=== PATIENT | female | born 1950 | race Caucasian/White ===

== ENCOUNTER 2017-05-12 10:09 | Day surgery (SDC) | payer OTHER ==
[2017-05-10 17:17] VITALS: BMI 28.9
--- NOTE | 2017-05-12 09:07 | HP ---
History & Physical Update - History History: No Change - Physical Physical: No Change - Assessment Assessment: No Change - Plan Plan: No Change
[~2017-05-12 10:09] MED LIST: ACETAMINOPHEN 325 MG TABLET (FP) PO PRN
[2017-05-12] MEDS ORDERED: CYCLOPENTOLATE HCL 1% OPHTH SOLN 2 ML BOTTLE ONE (10:24)
[2017-05-12] MEDS ORDERED: PHENYLEPHRINE 2.5% OPHTH SOLN 15 ML BOTTLE ONE (10:24)
[2017-05-12] MEDS ORDERED: CIPROFLOXACIN 0.3% EYE DROPS 5 ML BOTTLE ONE (10:24)
[2017-05-12] MEDS ORDERED: FLURBIPROFEN 0.03% OPHTH SOLN 2.5 ML BOTTLE ONE (10:24)
[2017-05-12] MEDS ORDERED: TROPICAMIDE 0.5% OPHTHALMIC SOLN 15 ML BOTTLE ONE (10:24)
[2017-05-12] MEDS ORDERED: LACTATED RINGERS SOLUTION 1,000 ML IV SCH (10:30)
[2017-05-12] MEDS: CIPROFLOXACIN HCL 0.3% OPHTH 2.5ML BOTTLE OP SCH ×3 (10:41→10:51)
[2017-05-12] MEDS: PHENYLEPHRINE 2.5% OPHTH SOLN 15 ML BOTTLE OP SCH ×3 (10:41→10:51)
[2017-05-12] MEDS: FLURBIPROFEN 0.03% OPHTH SOLN 2.5 ML BOTTLE OP SCH ×3 (10:41→10:51)
[2017-05-12] MEDS: TROPICAMIDE 1% OPHTH SOLN 15 ML BOTTLE OP SCH ×3 (10:41→10:51)
[2017-05-12] MEDS: CYCLOPENTOLATE HCL 1% OPHTH SOLN 2 ML BOTTLE OP SCH ×3 (10:41→10:51)
[2017-05-12] MEDS ORDERED: MIDAZOLAM HCL 2 MG/2 ML SINGLE DOSE VIAL ONE (11:59)
[2017-05-12] MEDS ORDERED: LIDOCAINE HCL/PF 2% SDV 5ML VIAL INF ONE (12:09)
[2017-05-12] MEDS ORDERED: BUPIVACAINE HCL/PF 0.75% 10 ML VIAL RB ONE (12:09)
[2017-05-12] MEDS ORDERED: POVIDONE-IODINE 5% OPHTHALMIC PREP 30 ML SOLUTION OS ONE (12:11)
[2017-05-12] MEDS ORDERED: CHONDROITIN SU A/HYALUR SOD 1 KIT IO ONE (12:19)
[2017-05-12] MEDS ORDERED: BSS (NA/CA/MG/K) BALANCED SALT SOLUTION OPHTH SOLN 15 ML BOTTLE OS ONE (12:19)
[2017-05-12] MEDS ORDERED: LIDOCAINE HCL 1% PRESERVATIVE FREE - 30ML VIAL IO ONE (12:19)
[2017-05-12] MEDS ORDERED: EPINEPHrine/PF 1 MG/1 ML (1:1,000) AMPULE IO ONE (12:26)
[2017-05-12 12:58] VITALS: TEMP 98.1
[2017-05-12 13:56] VITALS: PULSE 89
[2017-05-12 13:58] VITALS: BP 138/74
--- NOTE | 2017-05-12 20:19 | SPEC ---
DATE OF OPERATION: 05/12/2017 OPERATION: Phacoemulsification with posterior chamber intraocular lens implantation, left eye, lens used [id number], 22.5 Diopter, Serial No. [id number]. PREOPERATIVE DIAGNOSIS: Cataract, left eye. POSTOPERATIVE DIAGNOSIS: Cataract, left eye. SURGEON: Vick Wade M.D. ANESTHESIA: Peribulbar/Modified Van Lint/MAC. COMPLICATIONS: None. PROCEDURE: The patient was brought to the operating room and correctly identified along with the operative site and a correct intraocular lens ramirez. The patient was then given a peribulbar block under sedation with 5 mL of a 1:1 mixture of 2% Lidocaine and 0.5% Bupivacaine. Two to 3 mL of the same mixture was given as a modified Van Lint block. The eye was then prepped and draped in the usual sterile fashion including 5% Betadine solution in the conjunctival sac and an eyelid drape. An eyelid speculum was then placed into the eye. A paracentesis port was created. Viscoelastic was injected to inflate the anterior chamber. A temporal clear corneal wound was created. A continuous circular capsulorrhexis was performed. The nucleus was then hydro-dissected and removed phacoemulsification via the rcoqey-ehs-ultbjop approach. The remaining cortical material was irrigated and aspirated from the eye. Viscoelastic was injected to inflate the capsular bag. The lens was injected into the capsular bag. Viscoelastic was then irrigated and aspirated from the eye. The intraocular lens was noted to be well centered and covered by the anterior capsular border. All wounds were found to be watertight. Topical Vancomycin was given. The eye patch and shield were placed. The patient was discharged from the operating room in stable condition. Mattie [id number]
== END 2017-05-12 13:40 | disposition home or self-care (01) ==
LOC: JASU-SURG 10:09
PROVIDERS: ATTEND Ophthalmology
PROC: 08RK3JZ Replacement of Left Lens with Synthetic Substitute, Percutaneous Approach (ICD-10-PCS; principal; 2017-05-12 12:00)
DX: H26.9 Unspecified cataract (principal)
CPT/HCPCS: 82962

== ENCOUNTER 2017-06-08 00:38 | Emergency (ER) | payer OTHER ==
--- NOTE | 2017-06-08 01:02 | PDOC ---
History of Present Illness - General Stated Complaint: BLOOD SUGAR PROBLEM Time Seen by Provider: 06/08/17 01:02 - History of Present Illness Initial Comments: 67 year old female with history of IDDM and developmental issue (likely autism but never formally diagnosed) presenting with repeat asymptomatic hyperglycemia (readings of 500s for two days in a row). States she is taking her medication as directed and has been eating fairly well. Denies nausea, vomiting, fevers, chills, abdominal pain, urinary symptoms, sob, chest pain, or other sick symptoms. 06/08/17 02:53 Past History - Past Medical History Allergies/Adverse Reactions: Allergies Allergy/AdvReac Type Severity Reaction Status Date / Time No Known Allergies Allergy Verified 06/08/17 01:21 Home Medications: Ambulatory Orders Ezetimibe [Zetia -] 10 mg PO DAILY #0 tablet 05/20/12 Valsartan [Diovan] 160 mg PO DAILY #0 tablet 05/20/12 Insulin Lispro [Humalog] 100 unit SQ ASDIR 11/11/13 Insulin (Levemir) [Levemir Flexpen -] 0 units SQ ASDIR #0 11/13/13 Duloxetine HCl [Cymbalta] 20 mg PO HS 05/11/17 Glipizide 10 mg PO BID 05/11/17 Metformin HCl 500 mg PO BID 05/11/17 Risperidone 1 mg PO HS 05/11/17 Cephalexin [Keflex] 500 mg PO BID 5 Days #10 capsule 06/08/17 Anemia: No Asthma: No Cancer: No Cardiac Disorders: No CVA: No COPD: No CHF: No Dementia: No Diabetes: Yes GI Disorders: No Disorders: No HTN: Yes Hypercholesterolemia: Yes Liver Disease: No Seizures: No Thyroid Disease: No - Suicide/Smoking/Psychosocial Hx Smoking Status: No Smoking History: Never smoked Have you smoked in the past 12 months: No Number of Cigarettes Smoked Daily: 0 Hx Alcohol Use: No Drug/Substance Use Hx: No Substance Use Type: None Hx Substance Use Treatment: No Review of Systems - Review of Systems Constitutional: No: Chills, Diaphoresis, Fever, Loss of Appetite HEENTM: No: Eye Pain, Blurred Vision Respiratory: No: Cough, Orthopnea, Shortness of Breath Cardiac (ROS): No: Chest Pain, Irregular Heart Rate, Chest Tightness ABD/GI: No: Constipated, Diarrhea, Nausea, Poor Appetite, Vomiting : No: Burning, Dysuria, Discharge, Frequency Musculoskeletal: No: Back Pain, Joint Pain, Joint Swelling Integumentary: No: Bruising, Change in Color, Pruritus Neurological: No: Headache, Numbness, Paresthesia *Physical Exam - Physical Exam General Appearance: Yes: Nourished, Appropriately Dressed. No: Apparent Distress HEENT: positive: EOMI, ESTEVAN, Normal ENT Inspection, Normal Voice Neck: positive: Trachea midline, Normal Thyroid, Supple. negative: Tender, Rigid Respiratory/Chest: positive: Lungs Clear, Normal Breath Sounds. negative: Chest Tender, Respiratory Distress, Accessory Muscle Use Cardiovascular: positive: Regular Rhythm, Regular Rate Gastrointestinal/Abdominal: positive: Normal Bowel Sounds, Flat, Soft. negative : Tender Musculoskeletal: positive: Normal Inspection. negative: CVA Tenderness Extremity: positive: Normal Capillary Refill, Normal Inspection, Normal Range of Motion. negative: Tender Integumentary: positive: Normal Color, Dry, Warm Neurologic: positive: Fully Oriented, Alert, Normal Response, Motor Strength 5/ 5. negative: Normal Mood/Affect (slightly flact affect) ED Treatment Course - LABORATORY CBC & Chemistry Diagram: 06/08/17 02:00 06/08/17 02:00 Medical Decision Making - Medical Decision Making 67 year old female with IDDM presenting with elevated sugars at home to 500s and 400 on our labs. Sugars down to 300s after 1L PO hydration and 5 units sub cutaneous insulin. UA demonstrating UTI without ketones. Patient remained asymptomatic during her visit. Will DC with PCP follow up and keflex to ensure better blood sugar control. 06/08/17 04:07 *DC/Admit/Observation/Transfer Diagnosis at time of Disposition: Hyperglycemia, UTI (lower urinary tract infection) - Discharge Dispostion Disposition: HOME Condition at time of disposition: Improved Admit: No - Prescriptions Prescriptions: Cephalexin [Keflex] 500 mg PO BID 5 Days #10 capsule - Referrals Referrals: Gaston Limon MD [Primary Care Provider] - - Patient Instructions Printed Discharge Instructions: DI for Hyperglycemia -- Adult Additional Instructions: Please follow up with your primary care physician for your blood sugar control. Please take the keflex antibiotic twice a day for 5 days. Please return to the ED if you have new or worsening symptoms. - Post Discharge Activity
[2017-06-08 01:21] VITALS: BP 129/89; PULSE 109; TEMP 97.7; BMI 30.2
[2017-06-08 02:19] LABS: EOS % 4.1 % (0-4.5); HEMATOCRIT 33.9 % (32.4-45.2); HEMOGLOBIN 11.7 GM/dL (10.7-15.3); MCH 29.9 pg (25.7-33.7); MCHC 34.4 g/dl (32.0-36.0); MEAN PLT VOLUME 9.2 fl (7.5-11.1); MONO % 8.5 % (3.8-10.2); NEUT % 47.4 % (42.8-82.8); PLATELET COUNT 241 K/MM3 (134-434); RDW 13.1 % (11.6-15.6); WHITE BLOOD COUNT 8.1 K/mm3 (4.0-10.0)
--- NOTE | 2017-06-08 02:22 | PDOC ---
Attending Attestation - Resident Resident Name: Myriam Munguia - ED Attending Attestation I have performed the following: I have examined & evaluated the patient, The case was reviewed & discussed with the resident, I agree w/resident's findings & plan, Exceptions are as noted - HPI HPI: 06/08/17 02:19 67-year-old female with past medical history of insulin-dependent diabetes presents with hyperglycemia. The patient's sisters with the patient. Patient may also have a history of questionable learning disorder, autism, anxiety. States that over the , the patient may have been cheating and eating lots of sweet foods. Patient sugars typically between 100s to 300s. This time, the patient's sugar was lately 530 for the last 2 days. Patient reports that she is adherent to her medications. Denies any symptoms at this time. No fevers or chills or chest pain or dysuria. Came to the ED for evaluation. - Physicial Exam PE: 06/08/17 02:21 GENERAL: Awake, alert, and fully oriented, in no acute distress. HEAD: No signs of trauma EYES: PERRLA, EOMI, sclera anicteric, conjunctiva clear ENT: Auricles normal inspection, hearing grossly normal, nares patent NECK: Normal ROM, supple EXTREMITIES: Normal range of motion, no edema. No clubbing or cyanosis. No cords, erythema, or tenderness NEUROLOGICAL: Cranial nerves II through XII grossly intact. SKIN: Warm, Dry, normal turgor, no rashes or lesions noted. - Medical Decision Making 06/08/17 02:21 Vital Signs Temp Pulse Resp BP Pulse Ox 97.7 F 109 H 19 129/89 98 06/08/17 01:17 06/08/17 01:17 06/08/17 01:17 06/08/17 01:17 06/08/17 01:17 Patient with asymptomatic hypertension likely secondary to poor diet compliance. We'll however, obtain blood work to rule out other etiology such as DKA or metabolic disarray or urinary tract infection. We'll give IV fluids and control patient's glucose and if improved an unremarkable workup, patient be discharged home. 06/08/17 03:39 CBC, BMP 06/08/17 02:00 06/08/17 02:00 CMP Sodium 133 mmol/L (136-145) L 06/08/17 02:00 Potassium 4.6 mmol/L (3.5-5.1) 06/08/17 02:00 Chloride 98 mmol/L (98-107) 06/08/17 02:00 Carbon Dioxide 31 mmol/L (21-32) 06/08/17 02:00 Anion Gap 4 (8-16) L 06/08/17 02:00 BUN 25 mg/dL (7-18) H 06/08/17 02:00 Creatinine 1.0 mg/dL (0.55-1.02) 06/08/17 02:00 Creat Clearance w eGFR 55.47 (>60) 06/08/17 02:00 Random Glucose 403 mg/dL (74-106) H* 06/08/17 02:00 Calcium 9.0 mg/dL (8.5-10.1) 06/08/17 02:00 Phosphorus 4.1 mg/dL (2.5-4.9) 06/08/17 02:00 Magnesium 2.0 mg/dL (1.8-2.4) 06/08/17 02:00 Total Bilirubin 0.1 mg/dL (0.2-1.0) L D 06/08/17 02:00 AST 35 U/L (15-37) 06/08/17 02:00 ALT 58 U/L (12-78) 06/08/17 02:00 Alkaline Phosphatase 158 U/L (45-117) H 06/08/17 02:00 Total Protein 8.2 g/dl (6.4-8.2) 06/08/17 02:00 Albumin 3.8 g/dl (3.4-5.0) 06/08/17 02:00 Urine Test Results Urine Color Straw 06/08/17 02:00 Urine Appearance Clear 06/08/17 02:00 Urine pH 5.0 (5.0-8.0) 06/08/17 02:00 Ur Specific [place] 1.025 (1.001-1.035) 06/08/17 02:00 Urine Protein Negative (NEGATIVE) 06/08/17 02:00 Urine Glucose (UA) 3+ (NEGATIVE) H 06/08/17 02:00 Urine Ketones Negative (NEGATIVE) 06/08/17 02:00 Urine Blood Negative (NEGATIVE) 06/08/17 02:00 Urine Nitrite Negative (NEGATIVE) 06/08/17 02:00 Urine Bilirubin Negative (<2.0 mg/dL) 06/08/17 02:00 Ur Leukocyte Esterase 1+ (NEGATIVE) H D 06/08/17 02:00 Ur Epithelial Cells Rare /HPF (FEW) 06/08/17 02:00 Urine Bacteria Few /hpf (NONE SEEN) 06/08/17 02:00 Urine Mucus Rare 06/08/17 02:00 Labs reviewed. Pt noted with UTI. No DKA. With hyperglycemia. Will treat with antibtiocis and have patient follow up with PMD
[2017-06-08 02:29] LABS: URINE APPEARANCE CLEAR; URINE BILIRUBIN NEGATIVE (<2.0 mg/dL); URINE BLOOD NEGATIVE (NEGATIVE); URINE COLOR STRAW; URINE GLUCOSE (UA) 3+ (NEGATIVE); URINE KETONE NEGATIVE (NEGATIVE); URINE NITRITE NEGATIVE (NEGATIVE); URINE PROTEIN NEGATIVE (NEGATIVE); URINE UROBILINOGEN NEGATIVE mg/dL (0.2-1.0)
[2017-06-08 02:45] LABS: URINE LEUK ESTERASE 1+ (NEGATIVE)
[2017-06-08 02:48] LABS: ALBUMIN 3.8 g/dl (3.4-5.0); ANION GAP 4 (8-16); BILIRUBIN,TOTAL 0.1 mg/dL (0.2-1.0); BLOOD UREA NITROGEN 25 mg/dL (7-18); CHLORIDE 98 mmol/L (98-107); CO2 31 mmol/L (21-32); PHOSPHOROUS 4.1 mg/dL (2.5-4.9); POTASSIUM 4.6 mmol/L (3.5-5.1); SGOT/AST 35 U/L (15-37); SGPT/ALT 58 U/L (12-78); SODIUM 133 mmol/L (136-145); TOT PROT 8.2 g/dl (6.4-8.2)
[2017-06-08 02:50] LABS: ALK PHOS 158 U/L (45-117); EPI CELLS RARE /HPF (FEW); URINE BACTERIA FEW /hpf (NONE SEEN); URINE MUCUS RARE
[2017-06-08 02:53] LABS: GLUCOSE,RANDOM 403 mg/dL (74-106)
[2017-06-08] MEDS ORDERED: INSULIN REGULAR HUMAN 100 UNITS/ML *VIAL SQ ONE (03:47)
[2017-06-08] MEDS ORDERED: INSULIN REGULAR HUMAN 100 UNITS/ML *VIAL ONE (03:53)
== END 2017-06-08 05:09 | disposition home or self-care (01) ==
LOC: JER 00:38
PROC: 3E013VG Introduction of Insulin into Subcutaneous Tissue, Percutaneous Approach (ICD-10-PCS; principal; 2017-06-08)
DX: E11.65 Type 2 diabetes mellitus with hyperglycemia (principal); Z79.4 Long term (current) use of insulin; Z79.84 Long term (current) use of oral hypoglycemic drugs; N39.0 Urinary tract infection, site not specified; E78.00 Pure hypercholesterolemia, unspecified; I10 Essential (primary) hypertension; F84.0 Autistic disorder
CPT/HCPCS: 36415; 80053; 81003; 81015; 82962; 83735; 84100; 85025; 87086; 87186; 96372; 99282-25

== ENCOUNTER 2018-08-13 21:05 | Emergency (ER) | payer OTHER ==
[2018-08-13 21:10] VITALS: BP 96/63; PULSE 100; TEMP 98.1; BMI 30.9
--- NOTE | 2018-08-13 21:32 | PDOC ---
History of Present Illness - General Chief Complaint: Pain Stated Complaint: BACK PAIN Time Seen by Provider: 08/13/18 21:23 History Source: Patient Exam Limitations: No Limitations - History of Present Illness Initial Comments: 08/13/18 21:26 [id number] with h/o prior bilateral renal stones, HTN, HLD, IDDM, and depression who p/w right flank pain radiating to her RUQ similar to her prior kidney stone pain. She has not tried any medication for the pain at home. It has been constant since last night. Denies f/c/n/v/d/c/black/bloody stool, change in her baseline abdominal swelling/distention, dysuria, hematuria, vaginal bleeding/ discharge, rash, headache, lightheadedness, vision change, numbness, tingling, focal weakness, change in appetite, change in weight over the past month, or any other concerning symptoms. No h/o aortic aneurysm that she or her family member knows of. Past History - Past Medical History Allergies/Adverse Reactions: Allergies Allergy/AdvReac Type Severity Reaction Status Date / Time No Known Allergies Allergy Verified 08/13/18 21:08 Home Medications: Ambulatory Orders Ezetimibe [Zetia -] 10 mg PO DAILY #0 tablet 05/20/12 Valsartan [Diovan] 160 mg PO DAILY #0 tablet 05/20/12 Duloxetine HCl [Cymbalta] 20 mg PO HS 05/11/17 Glipizide 10 mg PO BID 05/11/17 Risperidone 1 mg PO HS 05/11/17 metFORMIN HCL [Metformin HCl] 500 mg PO BID 05/11/17 Insulin Regular, Human [Humulin R U-500 Kwikpen] 0 unit SQ BID 08/13/18 Cephalexin Monohydrate [Keflex -] 500 mg PO Q6H #24 capsule MDD 4 tab 08/14/18 Cephalexin Monohydrate [Keflex -] 500 mg PO Q8H #42 capsule MDD 3 tab 08/14/18 Tamsulosin HCl [Flomax -] 0.4 mg PO DAILY #7 capsule 08/14/18 Anemia: No Asthma: No Cancer: No Cardiac Disorders: No CVA: No COPD: No CHF: No DVT: No Dementia: No Diabetes: Yes GI Disorders: No Disorders: No HTN: Yes Hypercholesterolemia: Yes Liver Disease: No Seizures: No Thyroid Disease: No - Immunization History Immunization Up to Date: No - Suicide/Smoking/Psychosocial Hx Smoking Status: No Smoking History: Never smoked Have you smoked in the past 12 months: No Number of Cigarettes Smoked Daily: 0 Hx Alcohol Use: No Drug/Substance Use Hx: No Substance Use Type: None Hx Substance Use Treatment: No Review of Systems - Review of Systems Able to Perform ROS?: Yes Comments:: 08/13/18 22:16 GEN: no fever, chills, malaise, generalized weakness, or weight change HEENT: no ear pain, sore throat, vision change, or eye pain CV: no chest pain, palpitations, lightheadedness, syncope, or edema RESP: no cough, wheezing, or SOB GI: no abdominal pain, nausea, vomiting, diarrhea, constipation, or white/black/ bloody stool : flank pain, no dysuria, hematuria, incontinence, retention, bleeding, or discharge MSK: no neck/back pain, muscle weakness/pain, or joint swelling/pain NEURO: no headache, seizure, vertigo, numbness, tingling, or focal weakness PSYCH: no substance use, no behavior change SKIN: no jaundice, no rash ROS otherwise negative except as noted in HPI *Physical Exam - Vital Signs Last Vital Signs Temp Pulse Resp BP Pulse Ox 98.1 F 100 H 20 96/63 97 08/13/18 21:08 08/13/18 21:08 08/13/18 21:08 08/13/18 21:08 08/13/18 21:08 - Physical Exam Comments: 08/13/18 22:18 GENERAL: intermittently uncomfortable but well-appearing, A/Ox4, no distress, answers questions appropriately, accompanied by family member HEENT: PERRLA, EOMI, moist mucous membranes NECK/BACK: no midline ttp, no spinal stepoff or deformity, no hematoma, full ROM , neck supple CARDIOVASCULAR: regular rate/rhythm, normal S1S2, no MGR, strong peripheral pulses, capillary refill <2 seconds, extremities wwp, no edema LUNGS/RESPIRATORY: no respiratory distress, CTAB GI/ABDOMEN: protuberant, a bit tight but stated baseline, symmetric [id number] , normoactive BS, no ttp, no midline pulsatile masses, +ventral hernia : right CVA ttp, no left CVA ttp EXTREMITIES: no muscle atrophy, no acute deformity SKIN: warm and dry, no pallor, no jaundice, no rash, no bruising, no skin breakdown, no cuts, no lesions NEUROLOGICAL: GCS 15, CN II-XII grossly intact, 5/5 strength proximally and distally, no facial droop Procedures - Bedside Ultrasound Remarks: STUDY: Gallbladder INDICATION: Rt flank pain FINDINGS: Irregularly shaped GB, no pericholecystic fluid, no wall thickening, no obvious stones/sludge, no CBD dilation CONCLUSION: No e/o cholecystitis or choledocholithiasis STUDY: Renal/Bladder INDICATION: Rt flank pain FINDINGS: No hydronephrosis, normal kidney size, no e/o cystitis CONCLUSION: Normal renal/bladder exam Heart Score/ECG Review #1 08/14/18 01:38 Sinus rhythm, rate 78, normal axis, QTc 476 ms, TWI in III and aVF, no ALINE or other ischemic ST-T changes ED Treatment Course - LABORATORY CBC & Chemistry Diagram: 08/13/18 22:25 08/14/18 00:25 Medical Decision Making - Medical Decision Making 08/13/18 22:20 Pt p/w severe flank pain. Initial Vital Signs Temp Pulse Resp BP Pulse Ox 98.1 F 100 H 20 96/63 97 08/13/18 21:08 08/13/18 21:08 08/13/18 21:08 08/13/18 21:08 08/13/18 21:08 Exam: As noted in Physical Exam section. DDX IBNLT: renal colic, obstructive uropathy, UTI/pyelonephritis, rental artery aneurysm or dissection (jamey w/ hematuria and no stone visualized on imaging), ACS, AAA/AD, pneumothorax, PE, cholecystitis, cholangitis, pancreatitis, gastritis, PUD, colitis, ruptured diverticulosis, diverticulitis wwo abscess or perforation, appendicitis, hernia, SBO, malignancy, splenic infarction, mesenteric ischemia, bowel perforation, ovarian torsion, ovarian cyst, PID, TOA , endometriosis, fibroid, musculoskeletal, constipation, etc. W/U ordered: CBCD CMP Trop UA UCx EKG Spiral CT TX ordered: IVF, Ofirmev Laboratory Tests 08/13/18 08/13/18 22:25 22:30 WBC 7.6 RBC 3.73 Hgb 11.6 Hct 34.6 MCV 92.7 MCH 31.0 MCHC 33.5 RDW 13.3 Plt Count 194 MPV 10.0 Absolute Neuts (auto) 4.5 Neutrophils % 59.1 D Lymphocytes % 31.5 Monocytes % 6.4 Eosinophils % 2.3 Basophils % 0.7 Nucleated RBC % 0 Platelet Estimate Adequate Platelet Comment Plts.reviewed Troponin I Cancelled Patient is given IVF and will re-check CMP afterwards. She has no hydronephrosis on POCUS or spiral CT and unlikely obstructive uropathy. Also I have ordered a formal RUQ US as the patient has elevated LFTs. CT/SPIRAL- RENAL-STONE CT Renal stone CT without contrast Clinical information given: flank pain multiplanar imaging was performed. No intravenous or enteric contrast was administered. No hydronephrosis is seen. An irregular approximately 1.3 x 0.9 x 0.7 cm calculus is noted within the left renal pelvis. No other definite urinary tract calculus is identified. A small amount of air is seen within the urinary bladder lumen possibly on the basis of recent catheterization or voiding. Correlate clinically. Cholelithiasis is seen without CT evidence of acute cholecystitis. There is no definite biliary tract dilatation. The liver, spleen, pancreas, adrenal glands and right kidney demonstrate no obvious noncontrast pathology. There is no aortic aneurysm. No gross lymphadenopathy is identified. The appendix is not definitely visualized. No indirect CT signs of acute appendicitis are noted on noncontrast imaging. Sigmoid diverticulosis is seen without obvious acute diverticulitis. No evidence of pneumoperitoneum, free intraperitoneal fluid or bowel obstruction. There is no gross noncontrast small bowel abnormality. Impression: An approximately 1.3 x 0.9 x 0.7 cm calculus is seen within the left renal pelvis. No hydronephrosis is noted. Urology consultation is suggested, nonemergent unless otherwise clinically indicated. There is no other definite urinary tract calculus. Cholelithiasis. Sigmoid diverticulosis. Colonic fecal retention which is probably moderate. 08/14/18 00:02 The patient's care has been endorsed to Dr. Eubanks at the end of my shift. She is pending formal US and UA (just gave urine sample). *DC/Admit/Observation/Transfer Diagnosis at time of Disposition: Flank pain, UTI (lower urinary tract infection) - Discharge Dispostion Disposition: HOME Condition at time of disposition: Stable - Prescriptions Prescriptions: Cephalexin Monohydrate [Keflex -] 500 mg PO Q6H #24 capsule MDD 4 tab Cephalexin Monohydrate [Keflex -] 500 mg PO Q8H #42 capsule MDD 3 tab Tamsulosin HCl [Flomax -] 0.4 mg PO DAILY #7 capsule - Referrals Referrals: Gaston Limon MD [Primary Care Provider] - Jaciel Villavicencio MD [Staff Physician] - - Patient Instructions - Post Discharge Activity
[2018-08-13] MEDS ORDERED: ACETAMINOPHEN 1000 MG/100 ML VIAL (NON FORMULARY) IVPB ONE (21:56)
[2018-08-13] MEDS ORDERED: SODIUM CHLORIDE 0.9% 500 ML INFUS.BAG IV ONE (21:57)
[2018-08-13] MEDS ORDERED: ACETAMINOPHEN INJECTION 100 ML IVPB ONE (22:07)
[2018-08-13 22:35] LABS: BASO % 0.7 % (0-2.0); EOS % 2.3 % (0-4.5); HEMATOCRIT 34.6 % (32.4-45.2); HEMOGLOBIN 11.6 GM/dL (10.7-15.3); LYMPH % 31.5 % (8-40); MCHC 33.5 g/dl (32.0-36.0); MEAN CELL VOLUME 92.7 fl (80-96); MONO % 6.4 % (3.8-10.2); NEUT % 59.1 % (42.8-82.8); RBC 3.73 M/mm3 (3.60-5.2); RDW 13.3 % (11.6-15.6); WHITE BLOOD COUNT 7.6 K/mm3 (4.0-10.0)
--- NOTE | 2018-08-13 22:50 | PDOC ---
Documentation entered by Khushbu Paniagua SCRIBE, acting as scribe for Bucky Doran MD. Bucky Doran MD: This documentation has been prepared by the Siva howard Collisia, SCRIBE, under my direction and personally reviewed by me in its entirety. I confirm that the documentation accurately reflects all work, treatment, procedures, and medical decision making performed by me. Attending Attestation - Resident Resident Name: CastañedaCeleste - ED Attending Attestation I have performed the following: I have examined & evaluated the patient, The case was reviewed & discussed with the resident, I agree w/resident's findings & plan, Exceptions are as noted - HPI HPI: 08/13/18 22:15 The patient is a 68 year old female with a significant past medical history of diabetes, hypertension, hypercholesterolemia who presents to the emergency department with right sided flank pain for 2 nights. The patient reports that she has experienced a similar episode in the past when she had a kidney stone. The patient denies any other associated symptoms. She denies any fever, chills, nausea, vomiting, diarrhea, constipation or urinary symptoms. She denies any chest pain, shortness of breath, headache or dizziness. She denies any other complaints. - Physicial Exam PE: 08/13/18 22:42 GENERAL: Awake, alert, and fully oriented, in no acute distress HEAD: No signs of trauma EYES: EOMI, sclera anicteric, conjunctiva clear ENT: Auricles normal inspection, hearing grossly normal, nares patent,. Moist mucosa NECK: Normal ROM, supple, ABDOMEN: Soft, nontender, No guarding, no rebound. No masses + R sided CVA tenderness to palpation EXTREMITIES: Normal range of motion, no edema. No clubbing or cyanosis. No cords, erythema, or tenderness NEUROLOGICAL: Cranial nerves II through XII grossly intact. Normal speech, SKIN: Warm, Dry, normal turgor, no rashes or lesions noted. - Medical Decision Making 08/13/18 22:42 Vital Signs Temp Pulse Resp BP Pulse Ox 98.1 F 100 H 20 96/63 97 08/13/18 21:08 08/13/18 21:08 08/13/18 21:08 08/13/18 21:08 08/13/18 21:08 I suspect the patient is renal colic. However, we will rule out with blood work including LFTs. Rule out pyleonephritis and cystitis. Labs, urinalysis, spiral CT and reassess. 08/13/18 23:50 CBC, BMP 08/13/18 22:25 08/13/18 22:25 CMP Sodium 131 mmol/L (136-145) L 08/13/18 22:25 Potassium 4.5 mmol/L (3.5-5.1) 08/13/18 22:25 Chloride 100 mmol/L (98-107) 08/13/18 22:25 Carbon Dioxide 23 mmol/L (21-32) 08/13/18 22:25 Anion Gap 9 MMOL/L (8-16) 08/13/18 22:25 BUN 23.6 mg/dL (7-18) H 08/13/18 22:25 Creatinine 1.5 mg/dL (0.55-1.3) H 08/13/18 22:25 Est GFR (CKD-EPI)AfAm 41.35 08/13/18 22:25 Est GFR (CKD-EPI)NonAf 35.68 08/13/18 22:25 Calcium 8.8 mg/dL (8.5-10.1) 08/13/18 22:25 Total Bilirubin 0.3 mg/dL (0.2-1) 08/13/18 22:25 AST 121 U/L (15-37) H 08/13/18 22:25 ALT 82 U/L (13-61) H 08/13/18 22:25 Alkaline Phosphatase 146 U/L (45-117) H 08/13/18 22:25 Troponin I Cancelled 08/13/18 22:30 Total Protein 8.4 g/dl (6.4-8.2) H 08/13/18 22:25 Albumin 3.5 g/dl (3.4-5.0) 08/13/18 22:25 UA pending Labs reviewed. Cr is elevated to 1.5 compared to prior. AST and ALT are slightly elevated compared to prior. Will obtain a RUQ ultrasound to ensure that we are evaluating for biliary pathology. Pt was given 1L of IVF. Will repeat CMP. Could this be post obstructive from kidney stone? Or could this be from dehydration? If Cr remains elevated after repeat CMP, should consider observation or admission for MYESHA. 08/14/18 01:39 UA shows positive nitrates. Ultrasound demonstrates no acute findings. Will treat this as pyelonephritis. Cr improved to 1.2 Will discharge with 500 mg keflex TID x 14 days. Heart Score/ECG Review #1 ECG reviewed & interpreted by me at: 01:40 08/14/18 02:02 NSR 78, no std/tessa, LVH, normal axis, normal intervals, QTC 476 msec. T wave flat V4-V6
[2018-08-13 23:12] LABS: PLATELET COUNT 194 K/MM3 (134-434)
[2018-08-13 23:13] LABS: PLATELET ESTIMATE ADEQUATE
[2018-08-13 23:41] LABS: ALBUMIN 3.5 g/dl (3.4-5.0); ALK PHOS 146 U/L (45-117); ANION GAP 9 MMOL/L (8-16); BILIRUBIN,TOTAL 0.3 mg/dL (0.2-1); BLOOD UREA NITROGEN 23.6 mg/dL (7-18); CALCIUM 8.8 mg/dL (8.5-10.1); CHLORIDE 100 mmol/L (98-107); CO2 23 mmol/L (21-32); CREATININE 1.5 mg/dL (0.55-1.3); POTASSIUM 4.5 mmol/L (3.5-5.1); SGOT/AST 121 U/L (15-37); SGPT/ALT 82 U/L (13-61); SODIUM 131 mmol/L (136-145); TOT PROT 8.4 g/dl (6.4-8.2)
[2018-08-14 00:36] LABS: EPI CELLS 1.8 /HPF (0-5/HPF); HYALINE CASTS 8 /lpf (0-8); URINE APPEARANCE CLEAR; URINE BILIRUBIN NEGATIVE (NEGATIVE); URINE COLOR YELLOW; URINE GLUCOSE (UA) 3+ (NEGATIVE); URINE KETONE NEGATIVE (NEGATIVE); URINE LEUK ESTERASE TRACE (NEGATIVE); URINE NITRITE POSITIVE (NEGATIVE); URINE PROTEIN NEGATIVE (NEGATIVE); URINE RBC 4 /hpf (0-4); URINE WBC 37 /hpf (0-5)
[2018-08-14 00:42] LABS: GLUCOSE,RANDOM 387 mg/dL (74-106)
--- NOTE | 2018-08-14 01:00 | PDOC ---
*Physical Exam - Vital Signs Last Vital Signs Temp Pulse Resp BP Pulse Ox 98.1 F 100 H 20 96/63 97 08/13/18 21:08 08/13/18 21:08 08/13/18 21:08 08/13/18 21:08 08/13/18 21:08 - Physical Exam Comments: 08/14/18 00:59 GENERAL: Awake, alert, and fully oriented, in no acute distress HEAD: No signs of trauma, normocephalic, atraumatic EYES: PERRLA, EOMI, sclera anicteric, conjunctiva clear ENT: Hearing grossly normal, nares patent, oropharynx clear without exudates. Moist mucosa NECK: Normal ROM, supple, no lymphadenopathy, JVD, or masses LUNGS: No distress, speaks full sentences, clear to auscultation bilaterally HEART: Regular rate and rhythm, normal S1 and S2, no murmurs, rubs or gallops, peripheral pulses normal and equal bilaterally. ABDOMEN: + R flank ttp. Soft, NDS, normoactive bowel sounds. No guarding, no rebound. No masses. Neg CVA ttp. EXTREMITIES : Normal inspection, Normal range of motion, no edema. No clubbing or cyanosis. NEUROLOGICAL: Cranial nerves II through XII grossly intact. Normal speech, normal gait, no focal sensorimotor deficits SKIN: Warm, Dry, normal turgor, no rashes or lesions noted ED Treatment Course - LABORATORY CBC & Chemistry Diagram: 08/13/18 22:25 08/14/18 00:25 - ADDITIONAL ORDERS Additional order review: Laboratory Results 08/14/18 08/14/18 08/13/18 00:32 00:02 22:30 Sodium Potassium Chloride Carbon Dioxide Anion Gap BUN Creatinine Est GFR (CKD-EPI)AfAm Est GFR (CKD-EPI)NonAf POC Glucometer 326 Random Glucose Calcium Total Bilirubin AST ALT Alkaline Phosphatase Troponin I Cancelled Total Protein Albumin Urine Color Yellow Urine Appearance Clear Urine pH 5.0 Ur Specific [place] 1.031 Urine Protein Negative Urine Glucose (UA) 3+ H Urine Ketones Negative Urine Blood 2+ H Urine Nitrite Positive H Urine Bilirubin Negative Urine Urobilinogen 1.0 Ur Leukocyte Esterase Trace Urine WBC (Auto) 37 Urine RBC (Auto) 4 Urine Casts (Auto) 8 U Epithel Cells (Auto) 1.8 Urine Bacteria (Auto) 3531.0 08/13/18 22:25 Sodium 131 L Potassium 4.5 Chloride 100 Carbon Dioxide 23 Anion Gap 9 BUN 23.6 H Creatinine 1.5 H Est GFR (CKD-EPI)AfAm 41.35 Est GFR (CKD-EPI)NonAf 35.68 POC Glucometer Random Glucose 387 H* Calcium 8.8 Total Bilirubin 0.3 AST 121 H ALT 82 H Alkaline Phosphatase 146 H Troponin I < 0.02 Total Protein 8.4 H Albumin 3.5 Urine Color Urine Appearance Urine pH Ur Specific [place] Urine Protein Urine Glucose (UA) Urine Ketones Urine Blood Urine Nitrite Urine Bilirubin Urine Urobilinogen Ur Leukocyte Esterase Urine WBC (Auto) Urine RBC (Auto) Urine Casts (Auto) U Epithel Cells (Auto) Urine Bacteria (Auto) 08/14/18 08/13/18 00:32 22:25 RBC 3.73 MCV 92.7 MCHC 33.5 RDW 13.3 MPV 10.0 Neutrophils % 59.1 D Lymphocytes % 31.5 Monocytes % 6.4 Eosinophils % 2.3 Basophils % 0.7 POC Glucometer 326 - RADIOLOGY Radiology Studies Ordered: 08/14/18 01:16 : 1950 Order Type: Preliminary Name: DAVIDSON SALGADO Sex: F Study Description: CT ABDOMEN AND PELVIS Modality: CT Location: [facility] Referring Physician: JIMMY CUENCA Comments: Donell Kelley MD wrote on Aug 14, 2018 at 12:13 AM: Referring Physician: JIMMY CUENCA Patient Name: NAOMI CEDEÑO THIS IS A PRELIMINARY REPORT FROM [facility] DATE OF SERVICE: 2018-08-13 22:45:30 IMAGES: [id number] EXAM: CTA chest without contrast HISTORY: Flank pain COMPARISON: None. FINDINGS: There is a coarse 1.5 cm calculus noted in the left renal pelvis. There is no hydronephrosis. There is no ureteral dilatation. There are no ureteral calculi seen. There is a tiny gallstone noted. There are no secondary signs of cholecystitis. There is a moderate amount of stool noted in the colon. There is no evidence of intestinal CONFIDENTIALITY NOTICE: This information is intended only for the use of the recipient(s) named above. If you are not the intended recipient, or a person responsible for delivering it to the intended recipient, you are hereby notified that any disclosure, copying, distribution or use of any of the information contained in or attached to this transmission is STRICTLY PROHIBITED. If you have received this transmission in error, please immediately notify [facility] [employer] [facility] and destroy the original transmission and its attachments without saving them in any manner [address] [facility] [address] [place] [address] Phone: [phone] Fax: Email: [email or web address] Patient Information: : 1950 Order Type: Preliminary Name: DAVIDSON SALGADO Sex: F Study Description: CT ABDOMEN AND PELVIS Modality: CT Location: [facility] Referring Physician: JIMMY mace. There is sigmoid diverticulosis without obvious diverticulitis. The appendix is not identified. There is no pericecal or right lower quadrant inflammatory process. Urinary bladder is mildly distended. There are no bladder calculi. There is a small amount of air in the urinary bladder lumen possibly iatrogenic if there has been recent catheterization. One or more of the following dose reduction techniques were used: automated exposure control, adjustment of the mA and/or kV according to patient size, use of iterative reconstructive technique. THIS DOCUMENT HAS BEEN ELECTRONICALLY SIGNED Donell Kelley MD 08/14/2018 00:12 WILLIAN Gaviria. Please call [employer] Professor [phone]) with questions. Donell Kelley MD Clinicians - Please contact [employer] Professor with further questions at [phone]) Patients - Please contact your Ordering Provider with questions. - Medications Given in the ED: ED Medications Discontinued Medications Generic Name Dose Route Start Last Admin Trade Name Freq PRN Reason Stop Dose Admin Acetaminophen 1,000 mg 08/13/18 21:56 08/13/18 22:29 Ofirmev Injection - IVPB 08/13/18 21:57 1,000 mg ONCE ONE Administration Sodium Chloride 1,000 ml 08/13/18 21:57 08/13/18 22:30 Normal Saline - IV 08/13/18 21:58 1,000 ml ONCE ONE Administration Medical Decision Making - Medical Decision Making 08/14/18 00:55 68 yo F with h/o BL renal stones, HTN, HLD, depression who p/w R flank pain radiating to RUQ x 1 day. Received signout from Dr. Stapleton. Patient Denies F/C, N/V, diarhea, hematuria, urinary complaints, CP, SOB, lightheadedness, weakness. HR 100, vitals otherwise wnl, AF, A&Ox3. Physical exam notable for R flank ttp. ED course notable for unremarkable CBC. CMP with BUN/Cr: 23.6/1.5 ( 1.0), elevated LFT's and ALK PHOS. UA with 2+ Blood, and + Nitrite. Pending CTAP. Prior Urine Kleb Pneum with multiple sensitivities (06/23). Pending CTAP. Received NS Ed Course: 08/14/18 01:03 UTI trreated with Ceftriaxone. 08/14/18 01:08 Repeat LFT's improved, Repeat Cr 1.2 08/14/18 01:15 CTAP with There is a coarse 1.5 cm calculus noted in the left renal pelvis. There is no hydronephrosis. There is no ureteral dilatation. There are no ureteral calculi seen. There is a tiny gallstone noted. There are no secondary signs of cholecystitis. 08/14/18 01:42 RUQ U/S unremarkable Patient stable for d/c with return precautions *DC/Admit/Observation/Transfer Diagnosis at time of Disposition: Flank pain, UTI (lower urinary tract infection) - Discharge Dispostion Disposition: HOME Condition at time of disposition: Stable Decision to Admit order: No - Prescriptions Prescriptions: Cephalexin Monohydrate [Keflex -] 500 mg PO Q6H #24 capsule MDD 4 tab Cephalexin Monohydrate [Keflex -] 500 mg PO Q8H #42 capsule MDD 3 tab Tamsulosin HCl [Flomax -] 0.4 mg PO DAILY #7 capsule - Referrals Referrals: Gsaton Limon MD [Primary Care Provider] - Jaciel Villavicencio MD [Staff Physician] - - Patient Instructions Printed Discharge Instructions: DI for Kidney Stones Additional Instructions: You were seen in the ER for a kidney stone that is trying to pass. We did laboratory tests on your urine and found blood in the urine, which is common with kidney stones. We did not see signs of an infection in the urine or on your vital signs. We gave you medications and iv fluids which helped your symptoms. After our assessment, we do not believe you are having a medical emergency at this time, and we believe you are safe to go home. supervisor wood room and take your prescriptions that we are sending electronically to your pharmacy. We are giving you referral information for a urologist in case you need a new one. Please also take over the counter pain medications for pain, following the instructions on the medication label. Please follow up with your primary care provider in 1-3 days. Call their clinic [facility], tell them you were seen in the er , and tell them you need an appointment. Please come back to the ER at any time , 24 hours a day, for any new or worsening symptoms, like worsening pain unrelieved with medications, fever, inability to urinate, burning on urination, or other symptoms. If you are having severe or life threatening symptoms, or symptoms that make it unsafe to drive or have someone drive you, please call 911. Please take Keflex three times daily. - Post Discharge Activity
[2018-08-14 01:03] LABS: ALBUMIN 3.2 g/dl (3.4-5.0); BILIRUBIN,TOTAL 0.2 mg/dL (0.2-1); BLOOD UREA NITROGEN 22.3 mg/dL (7-18); CALCIUM 8.2 mg/dL (8.5-10.1); CREATININE 1.2 mg/dL (0.55-1.3); TOT PROT 7.6 g/dl (6.4-8.2)
[2018-08-14] MEDS ORDERED: CEFTRIAXONE 1 GM/50 ML BAG ONE (01:30)
--- NOTE | 2018-08-14 08:31 | EKG ---
Test Reason : Blood Pressure : / mmHG Vent. Rate : 078 BPM Atrial Rate : 078 BPM P-R Int : 132 ms QRS Dur : 082 ms QT Int : 418 ms P-R-T Axes : 021 004 -03 degrees QTc Int : 476 ms NORMAL SINUS RHYTHM MINIMAL VOLTAGE CRITERIA FOR LVH, MAY BE NORMAL VARIANT POSSIBLE ANTERIOR INFARCT , AGE UNDETERMINED ABNORMAL ECG WHEN COMPARED WITH ECG OF 19-MAY-2012 00:11, NO SIGNIFICANT CHANGE WAS FOUND Confirmed by TERRY SEN MD ([id number]) on 08/14/2018 8:31:04 AM Referred By: Confirmed By:TERRY SEN MD
== END 2018-08-14 02:31 | disposition home or self-care (01) ==
LOC: JER 21:05
PROC: 3E033NZ Introduction of Analgesics, Hypnotics, Sedatives into Peripheral Vein, Percutaneous Approach (ICD-10-PCS; principal; 2018-08-13)
PROC: 3E0337Z Introduction of Electrolytic and Water Balance Substance into Peripheral Vein, Percutaneous Approach (ICD-10-PCS; 2018-08-13)
PROC: BF42ZZZ Ultrasonography of Gallbladder (ICD-10-PCS; 2018-08-13)
PROC: BT4JZZZ Ultrasonography of Kidneys and Bladder (ICD-10-PCS; 2018-08-13)
DX: N39.0 Urinary tract infection, site not specified (principal); Z87.440 Personal history of urinary (tract) infections; I10 Essential (primary) hypertension; E11.9 Type 2 diabetes mellitus without complications; Z79.4 Long term (current) use of insulin; E78.5 Hyperlipidemia, unspecified
CPT/HCPCS: 36415; 74176-TC; 76705-TC; 76775; 80053; 81003; 82962; 84484; 85025; 87086; 87186; 93005; 93010; 96374; 99282-25; J0131

== ENCOUNTER 2018-09-19 09:27 | Day surgery (SDC) | payer OTHER ==
[2018-09-16 10:12] VITALS: BMI 30.6
[2018-09-19] MEDS ORDERED: MIDAZOLAM HCL 2 MG/2 ML SINGLE DOSE VIAL ONE (11:16)
[2018-09-19] MEDS ORDERED: KETOROLAC TROMETHAMINE 30 MG/1 ML VIAL ONE (11:34)
--- NOTE | 2018-09-19 12:31 | OP ---
Operative Note - Note: Operative Date: 09/19/18 Operation: Left renal stone Findings: 10 mm lower pole Left renal stone Post-Operative Diagnosis: Same as Pre-op Surgeon: Kenn Carey Anesthesia: Fractional Estimated Blood Loss (mls): 0 Operative Report Dictated: Yes
[2018-09-19 13:33] VITALS: BP 104/56; PULSE 82; TEMP 97.6
--- NOTE | 2018-09-19 23:41 | OP ---
DATE OF OPERATION: 09/19/2018 PREOPERATIVE DIAGNOSIS: Left renal stone. POSTOPERATIVE DIAGNOSIS: Left renal stone. PROCEDURE: Left extracorporeal shockwave lithotripsy. ATTENDING: Rai Carey M.D. ANESTHESIA: General. DESCRIPTION OF PROCEDURE: Patient was brought in the operating room, placed in a supine position on the operating room table. Ultrasonography and fluoroscopy were performed. A 10-mm left lower pole stone was identified. At this point, anesthesia and preoperative antibiotics were administered. Shockwave lithotripsy was then performed. 3000 impulses at 17 joules of power were administered to stones with excellent fragmentation noted. No complications were noted. The patient tolerated procedure very well. RAI CHOUDHARY M.D. [id number]
== END 2018-09-19 13:20 | disposition home or self-care (01) ==
LOC: JASU-SURG 09:27
PROVIDERS: ATTEND Urology
PROC: 0TF4XZZ Fragmentation in Left Kidney Pelvis, External Approach (ICD-10-PCS; principal; 2018-09-19 11:00)
DX: N20.0 Calculus of kidney (principal)
CPT/HCPCS: 82962

== ENCOUNTER 2018-10-02 20:12 | Inpatient (IN) | payer OTHER | END 2018-10-13 12:37 | LOC: JERBED 10-03 00:06 → J4W 10-07 20:24 → JER 20:12 → JICU 10-03 06:54 ==